=== PATIENT | male | born 1985 | race Two or more races ===

== ENCOUNTER → 2024-10-27 | Outpatient (CLI) | payer BC ==
[2024-10-27 08:39] LABS: Hematocrit 46.3 % (41.0-53.0); Hemoglobin 16.5 g/dL (13.5-17.5); Mean Corpuscular Hemoglobin 32.3 pg (28.0-32.0); Mean Corpuscular Volume 90.6 fL (80.0-100.0); Nucleated Red Blood Cells % 0.0 %
[2024-10-27 08:53] LABS: Urine Protein, UAD Negative (Negative)
[2024-10-27 09:22] LABS: Alanine Aminotransferase 32 U/L (7-40); Alkaline Phosphatase 55 U/L (46-116); Anion Gap 8 (5-15); BUN/Creatinine Ratio 9.9 (10.0-20.0); Calcium 9.5 mg/dL (8.7-10.4); Carbon Dioxide 24 mmol/L (20-31); Glucose 93 mg/dL (74-106); Potassium 4.1 mmol/L (3.5-5.1); Sodium 140 mmol/L (136-145); Total Protein 6.1 g/dL (5.7-8.2); Triglycerides 114 mg/dL (< 150)
[2024-10-27 09:23] LABS: Albumin 4.3 g/dL (3.2-4.8); Cholesterol 166 mg/dL (< 200)
[2024-10-27 09:24] LABS: Bilirubin, Total 1.2 mg/dL (0.2-1.0)
[2024-10-27 09:25] LABS: Blood Urea Nitrogen 8 mg/dL (9-23); Chloride 108 mmol/L (98-107); HDL Cholesterol 33 mg/dL (40-59)
[2024-10-27 11:14] LABS: Hepatitis A Total Antibody Negative (Negative); Hepatitis B Surface Antigen Negative (Negative)
[2024-10-27 11:15] LABS: Hepatitis C Antibody Negative (Negative)
== END | disposition home or self-care (01) ==
LOC: LAB 06:59
PROVIDERS: ATTEND Licensed Practical Nurse
DX: E55.9 Vitamin D deficiency, unspecified (principal); Z12.11 Encounter for screening for malignant neoplasm of colon; Z13.1 Encounter for screening for diabetes mellitus; Z13.220 Encounter for screening for lipoid disorders; Z13.29 Encounter for screening for other suspected endocrine disorder; Z13.6 Encounter for screening for cardiovascular disorders; Z00.01 Encounter for general adult medical examination with abnormal findings
CPT/HCPCS: 36415; 80053; 80061; 81001; 82043; 82274; 82306; 83036; 84443; 85025; 86704; 86706; 86708; 86803; 87340

== ENCOUNTER 2025-01-04 08:16 | Outpatient (CLI) | payer BC ==
[2025-01-04 09:03] LABS: Alanine Aminotransferase 35 U/L (7-40); Albumin 4.4 g/dL (3.2-4.8); Alkaline Phosphatase 64 U/L (46-116); Anion Gap 8 (5-15); BUN/Creatinine Ratio 9.6 (10.0-20.0); Calcium 9.2 mg/dL (8.7-10.4); Carbon Dioxide 27 mmol/L (20-31); Chloride 107 mmol/L (98-107); Cholesterol 184 mg/dL (< 200); Glucose 100 mg/dL (74-106); HDL Cholesterol 44 mg/dL (40-59); Potassium 4.7 mmol/L (3.5-5.1); Sodium 142 mmol/L (136-145); Total Protein 6.7 g/dL (5.7-8.2); Triglycerides 121 mg/dL (< 150)
[2025-01-04 09:04] LABS: Bilirubin, Total 0.9 mg/dL (0.2-1.0)
[2025-01-04 09:11] LABS: Blood Urea Nitrogen 8 mg/dL (9-23)
== END 2025-01-04 17:00 | disposition home or self-care (01) ==
LOC: LAB 08:16
PROVIDERS: ATTEND Licensed Practical Nurse
DX: E78.5 Hyperlipidemia, unspecified (principal); E55.9 Vitamin D deficiency, unspecified; Z72.89 Other problems related to lifestyle
CPT/HCPCS: 36415; 80053; 80061; 82043; 82306

== ENCOUNTER 2025-04-03 11:12 | Outpatient (CLI) | payer BC ==
[2025-04-03 11:54] LABS: Albumin 4.6 g/dL (3.2-4.8); Alkaline Phosphatase 57 U/L (46-116); Anion Gap 6 (5-15); BUN/Creatinine Ratio 7.3 (10.0-20.0); Calcium 9.4 mg/dL (8.7-10.4); Carbon Dioxide 28 mmol/L (20-31); Chloride 107 mmol/L (98-107); Cholesterol 148 mg/dL (< 200); Glucose 86 mg/dL (74-106); HDL Cholesterol 45 mg/dL (40-59); Potassium 4.5 mmol/L (3.5-5.1); Sodium 141 mmol/L (136-145); Total Protein 6.7 g/dL (5.7-8.2); Triglycerides 97 mg/dL (< 150)
[2025-04-03 11:55] LABS: Bilirubin, Total 1.2 mg/dL (0.2-1.0)
[2025-04-03 11:57] LABS: Alanine Aminotransferase 43 U/L (7-40); Blood Urea Nitrogen 6 mg/dL (9-23)
== END 2025-04-03 17:00 | disposition home or self-care (01) ==
LOC: LAB 11:12
PROVIDERS: ATTEND Licensed Practical Nurse
DX: E78.5 Hyperlipidemia, unspecified (principal)
CPT/HCPCS: 36415; 80053; 80061

== ENCOUNTER 2025-04-10 07:10 | Outpatient (CLI) | payer BC ==
[~2025-04-10] VITALS: Ht 177.8 cm; Wt 106.6 kg
--- NOTE | 2025-04-10 10:05 | DVHCARD ---
Cardiology Stress Test [place] Treadmill Stress Test [place] Referring MD: MD Phu Protocol: Robert (with cardiolite) Reason for referral: Other (Dyslipidemia ) Target heart Rate:@85%: 152 Percent MPHR: 179 METS: 10.4 Resting Heart rate: 70 Resting Blood Pressure: 142/86 Exercise Heart Rate: 144 Exercise Blood Pressure: 173/107 Baseline EKG: Normal sinus rhythm Stress EKG: Sinus tachycardia Functional Capacity: Good Normal Heart Rate Response: Adequate Blood Pressure Response: Hypertensive Clinical response: Non-ischemic Arrhythmia?: No Cardiolite Injected?: Yes ST-T Changes: Non/Minimal Probability of Inducible Ische: Perfusion result pending Date of Service: Apr 10, 2025 Billing Provider: HERBIE MISHRA Cardiology Common Codes: PROCEDURE ONLY Treadmill W/Cardiolite Nuclear: [id number], INTERP, RPT HERBIE MISHRA Apr 10, 2025 10:05
--- NOTE | 2025-04-11 12:46 | DVHSR ---
APPROVED REPORT Exam: Nuclear Stress Test BMI: 0 Stress Test Details Stress Test: Exercise stress testing was performed using a Robert protocol. HR Resting HR: 70 bpm Max Heart Rate (APMHR): 179.233010 bpm Max HR Achieved: 144 bpm Target HR (85% APMHR): 152.178704 bpm % of APMHR: 80.45 Recovery HR: 91 bpm BP Resting BP: 142/86 mmHg Recovery BP: 148/98 mmHg ECG Resting ECG: Sinus Rhythm Clinical Reason for Termination: Completed protocol Exercise duration: 9 min sec Nurse Comments Recieved ambulatory, A/Ox4 on RA, connected to site monitor, VS stable. PIV S/L flushes well, reviewed POC, pt verbalized understanding. Ayo MUSEUM DIRECTOR here to monitor exam. Treadmill test performed per protocol. Pt stable, tolerated well, VS returned to baseline. Pt to follow up with cognos analyst for results. Stress ECG Conclusion lvef 80% normal perfusion scan NM EXAM: Myocardial Perfusion REST/STRESS Imaging Protocol: Rest Tc-99m/Stress Tc-99m 1 day Resting Data Rest SPECT myocardial perfusion imaging was performed in supine position 60 minutes following the intravenous injection of 10.5 mCi of Tc-99m Sestamibi. Time of rest injection: 07:45 Date: 04/10/2025 Time of rest imagin:45 Date: 04/10/2025 Administration Route: IV Administration Site: Right Arm Exercise Stress At peak stress, the patient was injected intravenously with 29.5mCi of Tc-99m Sestamibi. Time of stress injection: 09:14 Date: 04/10/2025 Time of stress imagin:14 Date: 04/10/2025 Administration Route: IV Administration Site: Right Arm Gated Stress SPECT was performed 60 minutes after stress injection. The images were gated to evaluate regional wall motion and calculate left ventricular ejection fraction. Stress only was performed in the Supine position. Nuclear Conclusion Nuclear Findings: negative for ischemia lvef 80% normal perfusion scan
== END 2025-04-10 17:00 | disposition home or self-care (01) ==
LOC: XYW 07:10
PROVIDERS: ATTEND Internal Medicine
DX: R00.0 Tachycardia, unspecified (principal); E78.5 Hyperlipidemia, unspecified
CPT/HCPCS: 78452; 93017; A9500